=== PATIENT | male | born 1960 | race Two or more races ===

== ENCOUNTER 2021-04-02 08:00 | Outpatient (CLI) | payer OTHER | END 2021-04-02 15:00 | disposition home or self-care (01) | LOC: LAB 08:00 | DX: R31.9 Hematuria, unspecified (principal) ==

== ENCOUNTER 2021-04-02 12:38 | Outpatient (CLI) | payer OTHER | END 2021-04-02 12:46 | disposition home or self-care (01) | LOC: TOM 12:38 | DX: R31.9 Hematuria, unspecified (principal) ==

== ENCOUNTER 2021-10-20 14:41 | Outpatient (CLI) | payer OTHER | END 2021-10-20 15:00 | disposition home or self-care (01) | LOC: MRI 14:41 | PROVIDERS: ATTEND Family Medicine | DX: M17.11 Unilateral primary osteoarthritis, right knee (principal) | CPT/HCPCS: 73721 ==

== ENCOUNTER 2021-10-31 13:34 | Outpatient (CLI) | payer OTHER | END 2021-10-31 13:40 | disposition home or self-care (01) | LOC: LAB 13:34 | PROVIDERS: ATTEND Orthopaedic Surgery | DX: N39.8 Other specified disorders of urinary system (principal); D68.8 Other specified coagulation defects; D64.89 Other specified anemias; I10 Essential (primary) hypertension; Z01.818 Encounter for other preprocedural examination ==

== ENCOUNTER 2023-01-08 13:00 | Outpatient (CLI) | payer OTHER | END 2023-01-08 13:45 | disposition home or self-care (01) | LOC: MRI 13:00 | PROVIDERS: ATTEND Orthopaedic Surgery | DX: M25.511 Pain in right shoulder (principal) | CPT/HCPCS: 73218 ==

== ENCOUNTER 2023-02-24 08:44 | Day surgery (SDC) | payer OTHER ==
[~2023-02-24 08:44] MED LIST: LIPITOR40 M1 PO; LOTREL 5-20 MG1 CAP PO
== END 2023-02-24 17:25 | disposition home or self-care (01) ==
LOC: CIR.AMB
PROVIDERS: ATTEND Urology
DX: N40.1 Benign prostatic hyperplasia with lower urinary tract symptoms (principal); Z20.822 Contact with and (suspected) exposure to COVID-19